=== PATIENT | male | born 1965 | race Caucasian/White ===

== ENCOUNTER 2018-06-22 14:53 | Outpatient (CLI) | payer OTHER ==
--- NOTE | 2018-06-22 17:44 | Ultrasound Report ---
FINAL REPORT EXAM: US RENAL BILAT HISTORY: KIDNEY DISEASE TECHNIQUE: Ultrasound examination of the kidneys PRIORS: None. FINDINGS: Visualized right kidney: 10.3 x 4.8 by 4.4 cm. Visualized left kidney: 11.2 x 4.7 x 4.4 cm. Focal lesion: None visible Calculus: None visible Hydronephrosis: None Perinephric fluid: None IMPRESSION: No sonographic evidence of renal pathology
--- NOTE | 2018-06-22 17:47 | Ultrasound Report ---
FINAL REPORT EXAM: US PELVIC LIMITED HISTORY: CKD TECHNIQUE: Ultrasound examination of the urinary bladder PRIORS: None. FINDINGS: There is no evidence of distal ureteral dilatation. The visualized portion of the urinary bladder is without focal lesion. No significant wall thickening or mass is evident. The urinary bladder calculated prevoid volume is 433 cc. Postvoid volume not imaged. IMPRESSION: No sonographic evidence of focal urinary bladder abnormality
== END 2018-06-22 14:54 | disposition home or self-care (01) ==
LOC: US 14:53
PROVIDERS: ATTEND Internal Medicine Nephrology
DX: N18.3 Chronic kidney disease, stage 3 (moderate) (principal)
CPT/HCPCS: 76770; 76857